=== PATIENT | male | born 1990 | race Caucasian/White ===

== ENCOUNTER → 2016-10-02 | Outpatient (CLI) | payer OTHER ==
[2016-10-02 16:44] LABS: BASO % 0.6 % (0.0-1.0); EOS # 0.1 K/mm3 (0.0-0.50); EOS % 2.1 % (0.0-3.0); LARGE UNSTAINED CELL # 0.2 K/mm3 (0.0-0.4); LARGE UNSTAINED CELL % 2.6 % (0.0-4.0); LYMPH # 2.1 K/mm3 (1.5-6.5); LYMPH % 28.8 % (24.0-44.0); MEAN CORPUSCULAR HEMOGLOBIN 31.2 pg (27.0-33.0); MEAN CORPUSCULAR HGB CONC 34.8 g/dl (32.0-36.5); MEAN CORPUSCULAR VOLUME 89.8 fl (80.0-96.0); MONO # 0.5 K/mm3 (0.0-0.8); MONO % 7.8 % (0.0-5.0); NEUTROPHILS # 3.9 K/mm3 (1.8-7.7); NEUTROPHILS % 58.2 % (36.0-66.0); PLATELET COUNT, AUTOMATED 164 k/mm3 (150-450); RED CELL DISTRIBUTION WIDTH 12.3 % (11.5-14.5); WHITE BLOOD COUNT 6.7 K/mm3 (4.0-10.0)
[2016-10-02 16:56] LABS: ALBUMIN/GLOBULIN RATIO 1.14 (1.00-1.93); ALKALINE PHOSPHATASE 84 U/L (45-117); ALT/SGPT 33 U/L (12-78); ANION GAP 5 MEQ/L (8-16); AST/SGOT 12 U/L (15-37); BILIRUBIN,TOTAL 0.5 MG/DL (0.2-1.0); BLOOD UREA NITROGEN 13 MG/DL (7-18); CALCIUM LEVEL 8.3 MG/DL (8.5-10.1); CARBON DIOXIDE LEVEL 32 MEQ/L (21-32); CHLORIDE LEVEL 103 MEQ/L (98-107); GLOMERULAR FILTRATION RATE > 60.0 (>60); GLUCOSE, FASTING 127 MG/DL (70-105); POTASSIUM SERUM 3.9 MEQ/L (3.5-5.1); SODIUM LEVEL 140 MEQ/L (136-145); TOTAL PROTEIN 7.5 GM/DL (6.4-8.2)
--- NOTE | 2016-10-03 19:56 | ECGEPIP ---
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
== END ==
LOC: M LAB 15:24
PROVIDERS: ATTEND Family Medicine
DX: F11.20 Opioid dependence, uncomplicated (principal)

== ENCOUNTER 2016-12-23 22:40 | Emergency (ER) | payer OTHER ==
[~2016-12-23] VITALS: Ht 180.3 cm; Wt 74.3 kg
[2016-12-23] MEDS ORDERED: METH10CO6 PO (22:50)
[2016-12-24] MEDS ORDERED: TOBR3OI OS (00:43)
[2016-12-24] MEDS ORDERED: AUGM875T28 PO (00:43)
[2016-12-24] MEDS ORDERED: AUGMENTIN 875 MG TAB PO ONE (00:45)
[2016-12-24 00:52] VITALS: BP 121/69
== END 2016-12-24 00:53 | disposition home or self-care (01) ==
LOC: M ED 22:40
DX: H01.004 Unspecified blepharitis left upper eyelid (principal); F19.10 Other psychoactive substance abuse, uncomplicated; F17.200 Nicotine dependence, unspecified, uncomplicated; Z79.891 Long term (current) use of opiate analgesic

== ENCOUNTER 2017-01-13 16:21 | Emergency (ER) | payer OTHER ==
[~2017-01-13] VITALS: Ht 182.9 cm; Wt 73.8 kg
[~2017-01-13 16:21] MED LIST: AUGM875T28 PO; METH10CO6 PO; TOBR3OI OS
--- NOTE | 2017-01-13 18:50 | REPUSA ---
Clinical statement: Pain. Findings: The right inguinal region was image. There is a right inguinal hernia demonstrated upon Natalie kristen maneuver, containing omental fat. No bowel is seen herniating at this site. There is no eviden ce of ascites. Impression: Right inguinal hernia without bowel involvement.
[2017-01-13] MEDS ORDERED: IBUP-1022 PO (19:23)
[2017-01-13 19:39] VITALS: BP 121/81
== END 2017-01-13 19:41 | disposition home or self-care (01) ==
LOC: M ED 16:21
DX: K40.90 Unilateral inguinal hernia, without obstruction or gangrene, not specified as recurrent (principal); F17.210 Nicotine dependence, cigarettes, uncomplicated; F19.20 Other psychoactive substance dependence, uncomplicated; Z79.899 Other long term (current) drug therapy

== ENCOUNTER 2017-01-15 09:15 | Emergency (ER) | payer OTHER ==
[~2017-01-15] VITALS: Ht 182.9 cm; Wt 73.6 kg
[~2017-01-15 09:15] MED LIST changes: +IBUP-1022 PO
[2017-01-15 12:10] VITALS: BP 133/69
--- NOTE | 2017-01-15 12:15 | REP ---
MAXILLOFACIAL CT WITHOUT CONTRAST: HISTORY: Injury. Minimal mucosal thickening is present in the right maxillary sinus. The remaining sinuses are clear. The osteomeatal units are patent. The middle and inferior nasal turbinates are partially paradoxical. There is nicolle bullosa of the middle nasal turbinates. There is minimal deviation of the nasal septum to the left. A small spur is present arising from the left side of the nasal septum. There is a small area of dehiscence of the medial wall of the left orbit. The cribriform plate, medial wall of the right orbit and optic canals are intact . The carotid canals form a segment of the posterolateral casillas of the sphenoid sinus. There is no fracture. IMPRESSION: Sinus mucosal thickening as described above. Signed by Jorge Colon MD 01/15/2017 12:33 P
== END 2017-01-15 12:11 | disposition home or self-care (01) ==
LOC: M ED 09:15
DX: S01.531A Puncture wound without foreign body of lip, initial encounter (principal); R68.84 Jaw pain; W22.8XXA Striking against or struck by other objects, initial encounter; Y92.009 Unspecified place in unspecified non-institutional (private) residence as the place of occurrence of the external cause; Y93.89 Activity, other specified; Y99.8 Other external cause status; F17.200 Nicotine dependence, unspecified, uncomplicated; Z79.899 Other long term (current) drug therapy

== ENCOUNTER 2017-01-17 17:23 | Emergency (ER) | payer OTHER ==
[~2017-01-17] VITALS: Ht 182.9 cm; Wt 72.7 kg
[2017-01-17 18:25] LABS: BASO % 0.6 % (0.0-1.0); EOS # 0.3 K/mm3 (0.0-0.50); EOS % 5.7 % (0.0-3.0); LARGE UNSTAINED CELL # 0.2 K/mm3 (0.0-0.4); LARGE UNSTAINED CELL % 3.8 % (0.0-4.0); LYMPH # 1.8 K/mm3 (1.5-6.5); LYMPH % 32.9 % (24.0-44.0); MEAN CORPUSCULAR HEMOGLOBIN 30.8 pg (27.0-33.0); MEAN CORPUSCULAR VOLUME 85.5 fl (80.0-96.0); MONO # 0.5 K/mm3 (0.0-0.8); MONO % 10.3 % (0.0-5.0); NEUTROPHILS # 2.2 K/mm3 (1.8-7.7); NEUTROPHILS % 46.8 % (36.0-66.0); PLATELET COUNT, AUTOMATED 164 k/mm3 (150-450); RED CELL DISTRIBUTION WIDTH 12.5 % (11.5-14.5); WHITE BLOOD COUNT 4.8 K/mm3 (4.0-10.0)
[2017-01-17 18:43] LABS: METHADONE URINE POSITIVE (NEGATIVE)
[2017-01-17 18:50] LABS: ALBUMIN 3.8 GM/DL (3.2-5.2); ALBUMIN/GLOBULIN RATIO 0.97 (1.00-1.93); ALKALINE PHOSPHATASE 91 U/L (45-117); ALT/SGPT 31 U/L (12-78); ANION GAP 7 MEQ/L (8-16); AST/SGOT 16 U/L (15-37); BILIRUBIN,DIRECT 0.2 MG/DL (0.0-0.2); BILIRUBIN,TOTAL 0.8 MG/DL (0.2-1.0); BLOOD UREA NITROGEN 13 MG/DL (7-18); CALCIUM LEVEL 8.4 MG/DL (8.5-10.1); CARBON DIOXIDE LEVEL 27 MEQ/L (21-32); CHLORIDE LEVEL 106 MEQ/L (98-107); CREATININE FOR GFR 0.85 MG/DL (0.70-1.30); GLOMERULAR FILTRATION RATE > 60.0 (>60); GLUCOSE, FASTING 69 MG/DL (70-105); POTASSIUM SERUM 3.7 MEQ/L (3.5-5.1); SODIUM LEVEL 140 MEQ/L (136-145); TOTAL PROTEIN 7.7 GM/DL (6.4-8.2)
[2017-01-17] MEDS ORDERED: NS 1,000 ML IV ONE (19:00)
[2017-01-17 20:30] VITALS: BP 134/71
--- NOTE | 2017-01-19 08:25 | ECGEPIP ---
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
== END 2017-01-17 21:02 | disposition home or self-care (01) ==
LOC: M ED 17:23
DX: T40.4X1A Poisoning by other synthetic narcotics, accidental (unintentional), initial encounter (principal); F41.9 Anxiety disorder, unspecified; X58.XXXA Exposure to other specified factors, initial encounter; Y92.89 Other specified places as the place of occurrence of the external cause; Z79.899 Other long term (current) drug therapy

== ENCOUNTER 2018-04-12 10:26 | Emergency (ER) | payer MEDICAID, SELFPAY, OTHER ==
[2018-04-12] MEDS: LORazepam 0.5 MG TAB PO (11:23)
== END 2018-04-12 12:44 | disposition home or self-care (01) ==
LOC: M ED 10:26
DX: R03.0 Elevated blood-pressure reading, without diagnosis of hypertension (principal); R25.1 Tremor, unspecified; M54.5 Low back pain; M79.604 Pain in right leg; F41.9 Anxiety disorder, unspecified; F17.210 Nicotine dependence, cigarettes, uncomplicated
CPT/HCPCS: 99283

== ENCOUNTER → 2018-05-06 | Outpatient (CLI) | payer MEDICAID | LOC: M OUTALCOH 08:57 | DX: Z13.9 Encounter for screening, unspecified (principal); F11.20 Opioid dependence, uncomplicated; F15.20 Other stimulant dependence, uncomplicated ==

== ENCOUNTER 2018-06-16 19:23 | Emergency (ER) | payer MEDICAID, OTHER ==
[~2018-06-16] VITALS: Ht 182.9 cm; Wt 72.7 kg
[~2018-06-16 19:23] MED LIST changes: +IBUP80TA PO; +PROP40TA62 PO
[2018-06-16] MEDS ORDERED: SUBO8MIS (19:37)
[2018-06-16] MEDS ORDERED: NS 1,000 ML IV ONE (20:45)
[2018-06-16 20:49] LABS: BASO # 0.1 10^3/uL (0.0-0.2); BASO % 0.3 % (0.0-1.0); EOS # 0.2 10^3/uL (0.0-0.50); EOS % 1.4 % (0.0-3.0); HEMATOCRIT 44.9 % (42.0-52.0); HEMOGLOBIN 15.5 g/dl (13.5-17.5); LYMPH # 1.9 10^3/uL (1.5-6.5); LYMPH % 10.5 % (24.0-44.0); MEAN CORPUSCULAR HEMOGLOBIN 29.1 pg (27.0-33.0); MEAN CORPUSCULAR HGB CONC 34.5 g/dl (32.0-36.5); MEAN CORPUSCULAR VOLUME 84.4 fl (80.0-96.0); MONO % 11.4 % (0.0-5.0); NEUTROPHILS # 13.4 10^3/uL (1.8-7.7); PLATELET COUNT, AUTOMATED 220 10^3/uL (150-450); RED BLOOD COUNT 5.32 10^6/uL (4.30-6.10); WHITE BLOOD COUNT 17.7 10^3/uL (4.0-10.0)
[2018-06-16] MEDS ORDERED: KETOROLAC 30 MG/ML VIAL (J1885) IV ONE (21:00)
[2018-06-16 21:01] LABS: ALBUMIN 3.7 GM/DL (3.2-5.2); ALT/SGPT 21 U/L (12-78); BILIRUBIN,DIRECT 0.3 MG/DL (0.0-0.2); BILIRUBIN,TOTAL 0.8 MG/DL (0.2-1.0); BLOOD UREA NITROGEN 17 MG/DL (7-18); C REACTIVE PROTEIN QUANTITATIV 5.63 MG/DL (0.00-0.30); CALCIUM LEVEL 8.5 MG/DL (8.5-10.1); CARBON DIOXIDE LEVEL 31 MEQ/L (21-32); CHLORIDE LEVEL 101 MEQ/L (98-107); CREATININE FOR GFR 1.07 MG/DL (0.70-1.30); GLOMERULAR FILTRATION RATE > 60.0 (>60); GLUCOSE, FASTING 101 MG/DL (70-100); SODIUM LEVEL 137 MEQ/L (136-145); TOTAL PROTEIN 8.2 GM/DL (6.4-8.2)
[2018-06-16 21:15] LABS: ERYTHROCYTE SEDIMENTATION RATE 21 mm/hr (0-15)
[2018-06-16] MEDS ORDERED: ISOVUE-370 76% 100ML VIAL (Q9967) As Ordered ONE (21:27)
--- NOTE | 2018-06-16 22:57 | REPVR ---
EXAM: CT Neck With Contrast EXAM DATE/TIME: 06/16/2018 10:18 PM CLINICAL HISTORY: 28 years old, male; Pain; Other: Tooth pain/ redness down left neck; Additional info: Tooth pain/swelling redness down left neck TECHNIQUE: Axial computed tomography images of the neck with intravenous contrast. All CT scans at this facility use at least one of these dose optimization techniques: automated exposure control; mA and/or kV adjustment per patient size (includes targeted exams where dose is matched to clinical indication); or iterative reconstruction. Coronal and sagittal reformatted images were created and reviewed. CONTRAST: 75 ml of ISOVUE 370 administered intravenously. COMPARISON: No relevant prior studies available. FINDINGS: Sinuses: Mucosal thickening of the inferior frontal sinus, ethmoid sinuses, sphenoid sinus and to a much lesser degree left maxillary sinus. Nasopharynx: Slight prominence of the adenoids which is upper normal for age. Oropharynx: Normal. No significant tonsillar enlargement. Larynx: The epiglottis is normal. Submandibular/Parotid glands: Normal. Glands are normal in size. Thyroid: Normal. No enlarged or calcified nodules. Lymph nodes: Borderline left cervical nodes. Lungs: Normal as visualized. Vasculature: No acute findings. Dental: No significant periodontal disease. Bones/joints: Depression of the left lamina papyracea. Soft tissues: Slight subcutaneous edema of the left submandibular neck. IMPRESSION: 1. Borderline left cervical nodes. 2. Depression of the left lamina papyracea consistent with old injury. 3. Ethmoid, sphenoid, inferior frontal and to lesser degree left maxillary sinus disease. 4. Upper normal size of the adenoids for age. 5. Slight subcutaneous edema of the left submandibular neck. 6. No significant periodontal disease. Electronically signed by: Jermaine Helm On 06/16/2018 22:56:32 PM
[2018-06-16] MEDS ORDERED: AMPICILLIN SOD/SULBACTAM SOD 3 GM in D5W MINI-BAG PLUS 100 ML IV ONE (23:15)
[2018-06-16] MEDS ORDERED: methylPREDNISolone INJ 125 MG/2 ML VIAL (J2930) IV ONE (23:15)
[2018-06-16] MEDS ORDERED: KETO10TAB PO (23:44)
[2018-06-16] MEDS ORDERED: PRED20TA PO (23:44)
[2018-06-16] MEDS ORDERED: AUGM875T28 PO (23:44)
[2018-06-17 00:23] VITALS: BP 121/71
== END 2018-06-17 00:22 | disposition home or self-care (01) ==
LOC: M ED 19:23
DX: J01.90 Acute sinusitis, unspecified (principal); L03.221 Cellulitis of neck; K01.1 Impacted teeth; F17.210 Nicotine dependence, cigarettes, uncomplicated; F15.10 Other stimulant abuse, uncomplicated; Z79.899 Other long term (current) drug therapy
CPT/HCPCS: 36415; 70491; 80048; 80076; 83605; 85025; 85652; 86140; 87040; 96361; 96365; 96375; 99284; J1885; J2930; Q9967

== ENCOUNTER 2019-04-28 11:19 | Emergency (ER) | payer OTHER ==
[~2019-04-28] VITALS: Ht 182.9 cm; Wt 77.3 kg
[~2019-04-28 11:19] MED LIST changes: +KETO10TAB PO; +PRED20TA PO; +SUBO8MIS
[2019-04-28 11:20] VITALS: BP 141/76
[2019-04-28] MEDS ORDERED: hydrOXYzine 50 MG TAB PO STA (13:03)
[2019-04-28] MEDS ORDERED: NS 1,000 ML IV ONE (13:15)
[2019-04-28 13:19] LABS: HEMATOCRIT 42.7 % (42.0-52.0); MEAN CORPUSCULAR HEMOGLOBIN 29.8 pg (27.0-33.0); MEAN CORPUSCULAR HGB CONC 35.1 g/dl (32.0-36.5); MEAN CORPUSCULAR VOLUME 84.9 fl (80.0-96.0); PLATELET COUNT, AUTOMATED 189 10^3/uL (150-450); RED BLOOD COUNT 5.03 10^6/uL (4.30-6.10); WHITE BLOOD COUNT 7.4 10^3/uL (4.0-10.0)
[2019-04-28 13:46] LABS: ACETAMINOPHEN LEVEL < 2.0 UG/ML (10.0-30.0); ALBUMIN 4.5 GM/DL (3.2-5.2); ALT/SGPT 165 U/L (12-78); BILIRUBIN,DIRECT 0.3 MG/DL (0.0-0.2); BILIRUBIN,TOTAL 0.9 MG/DL (0.2-1.0); BLOOD UREA NITROGEN 19 MG/DL (7-18); CALCIUM LEVEL 9.1 MG/DL (8.5-10.1); CARBON DIOXIDE LEVEL 28 MEQ/L (21-32); CHLORIDE LEVEL 105 MEQ/L (98-107); CPK CREATINE PHOSPHOKINASE 669 U/L (39-308); CREATININE FOR GFR 0.83 MG/DL (0.70-1.30); ETHYL ALCOHOL (ETHANOL) < 0.003 % (0.000-0.010); GLOMERULAR FILTRATION RATE > 60.0 (>60); GLUCOSE, FASTING 82 MG/DL (70-100); POTASSIUM SERUM 3.9 MEQ/L (3.5-5.1); SALICYLATE LEVEL < 1.7 MG/DL (5.0-30.0); SODIUM LEVEL 140 MEQ/L (136-145); THYROID STIMULATING HORMONE 0.321 uIU/ML (0.358-3.740); TOTAL PROTEIN 8.4 GM/DL (6.4-8.2)
== END 2019-04-28 14:00 | disposition left against medical advice (07) ==
LOC: M ED 11:19 → EEVIPCON 11:19 → M ED 14:00
DX: F19.10 Other psychoactive substance abuse, uncomplicated (principal); Z79.891 Long term (current) use of opiate analgesic
CPT/HCPCS: 80048; 80076; 82550; 84443; 85027; 99283; G0480

== ENCOUNTER 2019-10-02 14:27 | Emergency (ER) | payer OTHER ==
[~2019-10-02] VITALS: Ht 182.9 cm; Wt 75.7 kg
[2019-10-02 15:14] LABS: BASO # 0.1 10^3/uL (0.0-0.2); BASO % 0.6 % (0.0-1.0); EOS # 0.2 10^3/uL (0.0-0.5); EOS % 1.6 % (0.0-3.0); HEMATOCRIT 44.1 % (42.0-52.0); HEMOGLOBIN 14.6 g/dl (13.5-17.5); LYMPH # 1.9 10^3/uL (1.5-5.0); LYMPH % 18.9 % (24.0-44.0); MEAN CORPUSCULAR HEMOGLOBIN 29.6 pg (27.0-33.0); MEAN CORPUSCULAR HGB CONC 33.1 g/dl (32.0-36.5); MEAN CORPUSCULAR VOLUME 89.5 fl (80.0-96.0); MONO # 1.3 10^3/uL (0.0-0.8); MONO % 12.6 % (0.0-5.0); NEUTROPHILS # 6.6 10^3/uL (1.5-8.5); PLATELET COUNT, AUTOMATED 196 10^3/uL (150-450); RED BLOOD COUNT 4.93 10^6/uL (4.30-6.10); WHITE BLOOD COUNT 9.9 10^3/uL (4.0-10.0)
[2019-10-02 15:33] LABS: ERYTHROCYTE SEDIMENTATION RATE 19 mm/hr (0-15)
[2019-10-02 15:40] LABS: ALBUMIN 3.7 GM/DL (3.2-5.2); ALT/SGPT 147 U/L (12-78); BILIRUBIN,DIRECT 0.3 MG/DL (0.0-0.2); BILIRUBIN,TOTAL 0.7 MG/DL (0.2-1.0); BLOOD UREA NITROGEN 16 MG/DL (7-18); C REACTIVE PROTEIN QUANTITATIV 0.62 MG/DL (0.00-0.30); CALCIUM LEVEL 9.1 MG/DL (8.5-10.1); CARBON DIOXIDE LEVEL 34 MEQ/L (21-32); CHLORIDE LEVEL 99 MEQ/L (98-107); CREATININE FOR GFR 0.69 MG/DL (0.70-1.30); GLOMERULAR FILTRATION RATE > 60.0 (>60); GLUCOSE, FASTING 88 MG/DL (70-100); POTASSIUM SERUM 3.7 MEQ/L (3.5-5.1); SODIUM LEVEL 136 MEQ/L (136-145); TOTAL PROTEIN 8.5 GM/DL (6.4-8.2)
[2019-10-02] MEDS ORDERED: DALBAVANCIN 1,500 MG in D5W 250 ML IV ONE (16:30)
[2019-10-02 17:52] VITALS: BP 138/89
--- NOTE | 2019-10-03 07:39 | REP ---
DEEP VENOUS ULTRASONOGRAPHY LEFT THIGH, RULE OUT DVT: REASON: Pain and swelling. TECHNIQUE: Multiple ultrasonographic images of the deep venous structures of the left thigh were obtained from the common femoral vein to the popliteal vein along with Doppler interrogation and color flow Doppler images. FINDINGS: There is no abnormal echogenic material seen within any of the visualized deep venous structures that would suggest acute thrombosis. Coaptation is unremarkable throughout. Doppler interrogation shows an expected response to respiratory variability and augmentation. The color flow images show what appears to be a normal vascular pattern throughout. IMPRESSION: There is no ultrasonographic evidence of deep venous thrombosis involving any of the visualized deep venous structures of the left thigh, as described above. Electronically Signed by Paresh Doherty DO 10/03/2019 08:39 A
== END 2019-10-02 18:17 | disposition home or self-care (01) ==
LOC: M ED 14:27
DX: L03.116 Cellulitis of left lower limb (principal); Z79.891 Long term (current) use of opiate analgesic
CPT/HCPCS: 36415; 80048; 80076; 83605; 85025; 85652; 86140; 87040; 93971; 96365; 99284; J0875

== ENCOUNTER 2019-10-25 15:55 | Emergency (ER) | payer OTHER ==
[~2019-10-25] VITALS: Ht 182.9 cm; Wt 79.2 kg
[2019-10-25 15:55] VITALS: BP 122/78
[2019-10-25] MEDS ORDERED: SUBO8MIS (16:02)
[2019-10-25] MEDS ORDERED: PRED10TA2 (16:02)
[2019-10-25] MEDS ORDERED: CLIN300C5 (16:02)
[2019-10-25] MEDS ORDERED: KETO10TAB (16:02)
[2019-10-25] MEDS ORDERED: CLEO300C2 PO (16:49)
== END 2019-10-25 16:55 | disposition home or self-care (01) ==
LOC: M ED 15:55
DX: L03.116 Cellulitis of left lower limb (principal)

== ENCOUNTER 2020-10-03 02:00 | Emergency (ER) | payer OTHER ==
[~2020-10-03 02:00] MED LIST changes: +CLEO300C2 PO; +CLIN300C6; +KETO10TAB; +PRED10TA2
[2020-10-03] MEDS ORDERED: NS 1,000 ML IV ONE (02:10)
[2020-10-03 02:46] LABS: BASO # 0.1 10^3/uL (0.0-0.2); BASO % 0.5 % (0.0-1.0); EOS # 0.3 10^3/uL (0.0-0.5); EOS % 2.9 % (0.0-3.0); HEMATOCRIT 43.8 % (42.0-52.0); HEMOGLOBIN 14.9 g/dl (13.5-17.5); LYMPH # 1.9 10^3/uL (1.5-5.0); LYMPH % 19.9 % (24.0-44.0); MEAN CORPUSCULAR HEMOGLOBIN 29.9 pg (27.0-33.0); MONO # 1.1 10^3/uL (0.0-0.8); MONO % 12.1 % (2.0-8.0); NEUTROPHILS % 64.4 % (36.0-66.0); PLATELET COUNT, AUTOMATED 184 10^3/uL (150-450); RED BLOOD COUNT 4.98 10^6/uL (4.30-6.10); WHITE BLOOD COUNT 9.4 10^3/uL (4.0-10.0)
[2020-10-03 02:59] LABS: ABG BASE EXCESS 0.6 (-2.0-2.0); ABG HCO3 25.8 MEQ/L (22.0-26.0); ABG O2 SATURATION 97.8 % (95.0-99.0); ABG PARTIAL PRESSURE CO2 43.5 mmHg (35.0-45.0); ABG TOTAL CO2 27.1 MEQ/L (22.0-29.0); ABG pH (ARTERIAL) 7.391 UNITS (7.350-7.450)
[2020-10-03 03:41] LABS: ACETAMINOPHEN LEVEL < 2.0 UG/ML (10.0-30.0); ALBUMIN 3.6 GM/DL (3.2-5.2); ALT/SGPT 58 U/L (12-78); BILIRUBIN,DIRECT 0.2 MG/DL (0.0-0.2); BILIRUBIN,TOTAL 0.5 MG/DL (0.2-1.0); BLOOD UREA NITROGEN 18 MG/DL (7-18); CALCIUM LEVEL 8.5 MG/DL (8.5-10.1); CARBON DIOXIDE LEVEL 31 MEQ/L (21-32); CHLORIDE LEVEL 108 MEQ/L (98-107); CPK CREATINE PHOSPHOKINASE 531 U/L (39-308); CREATININE FOR GFR 1.04 MG/DL (0.70-1.30); ETHYL ALCOHOL (ETHANOL) < 0.003 % (0.000-0.010); GLOMERULAR FILTRATION RATE > 60.0 (>60); GLUCOSE, FASTING 103 MG/DL (70-100); SALICYLATE LEVEL < 1.7 MG/DL (5.0-30.0); SODIUM LEVEL 141 MEQ/L (136-145); THYROID STIMULATING HORMONE 0.553 uIU/ML (0.358-3.740); TOTAL PROTEIN 8.4 GM/DL (6.4-8.2)
[2020-10-03 08:30] VITALS: BP 137/87
--- NOTE | 2020-10-04 07:27 | ECGEPIP ---
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
== END 2020-10-03 09:08 | disposition home or self-care (01) ==
LOC: M ED 02:00
DX: T59 Toxic effect of other gases, fumes and vapors (principal); F19.10 Other psychoactive substance abuse, uncomplicated; Y92.9 Unspecified place or not applicable; Y93.9 Activity, unspecified; Y99.9 Unspecified external cause status

== ENCOUNTER 2021-07-27 04:57 | Emergency (ER) | payer OTHER ==
[~2021-07-27 04:57] MED LIST changes: +CLIN-250; -CLIN300C6
[2021-07-27] MEDS ORDERED: LORazepam 2 MG/ML VIAL IV STA (05:07)
[2021-07-27] MEDS ORDERED: ONDANSETRON 4MG/2ML VIAL IV ONE (05:10)
[2021-07-27] MEDS ORDERED: NS 1,000 ML IV ONE ×2 (05:10→06:30)
[2021-07-27 05:29] LABS: BASO # 0.1 10^3/uL (0.0-0.2); BASO % 0.9 % (0.0-1.0); EOS # 0.2 10^3/uL (0.0-0.5); EOS % 3.2 % (0.0-3.0); HEMOGLOBIN 16.8 g/dl (13.5-17.5); LYMPH # 2.6 10^3/uL (1.5-5.0); LYMPH % 34.2 % (24.0-44.0); MEAN CORPUSCULAR HEMOGLOBIN 30.3 pg (27.0-33.0); MEAN CORPUSCULAR VOLUME 86.6 fl (80.0-96.0); MONO # 1.2 10^3/uL (0.0-0.8); MONO % 15.9 % (2.0-8.0); NEUTROPHILS # 3.5 10^3/uL (1.5-8.5); NEUTROPHILS % 45.4 % (36.0-66.0); PLATELET COUNT, AUTOMATED 176 10^3/uL (150-450); RED BLOOD COUNT 5.54 10^6/uL (4.30-6.10); WHITE BLOOD COUNT 7.6 10^3/uL (4.0-10.0)
[2021-07-27 05:57] LABS: AMPHETAMINES LEVEL URINE POSITIVE (NEGATIVE); BARBITURATES URINE NEGATIVE (NEGATIVE); BENZODIAZEPINES URINE NEGATIVE (NEGATIVE); CANNABINOIDS URINE NEGATIVE (NEGATIVE); COCAINE METABOLITE URINE NEGATIVE (NEGATIVE); METHADONE URINE NEGATIVE (NEGATIVE); OPIATES URINE POSITIVE (NEGATIVE); PHENCYCLIDINE URINE NEGATIVE (NEGATIVE)
[2021-07-27 06:09] LABS: ACETAMINOPHEN LEVEL < 2.0 UG/ML (10.0-30.0); ALBUMIN 4.2 GM/DL (3.2-5.2); ALT/SGPT 332 U/L (12-78); BILIRUBIN,DIRECT 0.3 MG/DL (0.0-0.2); BILIRUBIN,TOTAL 1.1 MG/DL (0.2-1.0); BLOOD UREA NITROGEN 16 MG/DL (7-18); CALCIUM LEVEL 9.1 MG/DL (8.5-10.1); CARBON DIOXIDE LEVEL 27 MEQ/L (21-32); CHLORIDE LEVEL 108 MEQ/L (98-107); ETHYL ALCOHOL (ETHANOL) < 0.003 % (0.000-0.010); GLOMERULAR FILTRATION RATE > 60.0 (>60); GLUCOSE, FASTING 70 MG/DL (70-100); POTASSIUM SERUM 4.8 MEQ/L (3.5-5.1); SALICYLATE LEVEL < 1.7 MG/DL (5.0-30.0); SODIUM LEVEL 140 MEQ/L (136-145); THYROID STIMULATING HORMONE 0.368 uIU/ML (0.358-3.740); TOTAL PROTEIN 8.7 GM/DL (6.4-8.2)
[2021-07-27 10:30] VITALS: BP 135/83
== END 2021-07-27 13:00 | disposition home or self-care (01) ==
LOC: M ED 04:57
DX: T40.1X1A Poisoning by heroin, accidental (unintentional), initial encounter (principal); F11.20 Opioid dependence, uncomplicated; I45.19 Other right bundle-branch block
CPT/HCPCS: 36415; 80048; 80076; 80143; 80307; 82077; 82550; 84443; 85025; 93005; 93041; 94760; 96361; 96374; 96375; 99285; J2060; J2405

== ENCOUNTER → 2021-10-30 | Outpatient (REF) | payer OTHER ==
[2021-10-30 19:40] LABS: GC DNA AMPLIFICATION NEGATIVE (NEGATIVE)
== END ==
LOC: M LAB REF 15:46
PROVIDERS: ATTEND Family Medicine
DX: F15.20 Other stimulant dependence, uncomplicated (principal)

== ENCOUNTER 2022-06-05 22:41 | Emergency (ER) | payer OTHER ==
[~2022-06-05] VITALS: Ht 182.9 cm; Wt 84.3 kg
[~2022-06-05 22:41] MED LIST changes: +TOBR3.5O2 OS; -TOBR3OI OS
[2022-06-06 07:17] VITALS: BP 141/71
== END 2022-06-06 07:24 | disposition home or self-care (01) ==
LOC: M ED 22:41
DX: K40.90 Unilateral inguinal hernia, without obstruction or gangrene, not specified as recurrent (principal); F11.10 Opioid abuse, uncomplicated

== ENCOUNTER → 2022-06-25 | Outpatient (REF) | payer OTHER ==
[2022-06-25 13:59] LABS: HEMATOCRIT 42.2 % (42.0-52.0); HEMOGLOBIN 14.4 g/dl (13.5-17.5); MEAN CORPUSCULAR HEMOGLOBIN 30.4 pg (27.0-33.0); MEAN CORPUSCULAR HGB CONC 34.1 g/dl (32.0-36.5); MEAN CORPUSCULAR VOLUME 89.2 fl (80.0-96.0); PLATELET COUNT, AUTOMATED 151 10^3/uL (150-450); RED BLOOD COUNT 4.73 10^6/uL (4.30-6.10); WHITE BLOOD COUNT 5.1 10^3/uL (4.0-10.0)
[2022-06-25 14:27] LABS: ALBUMIN 3.7 G/DL (3.2-5.2); ALKALINE PHOSPHATASE 93 U/L (46-116); ALT/SGPT 322 U/L (7.0-40); AST/SGOT 195 U/L (<34); BILIRUBIN,TOTAL 0.7 MG/DL (0.3-1.2); BLOOD UREA NITROGEN 22 MG/DL (9-23); CALCIUM LEVEL 8.8 MG/DL (8.5-10.1); CARBON DIOXIDE LEVEL 30 MMOL/L (20-31); CHLORIDE LEVEL 102 MMOL/L (98-107); CREATININE FOR GFR 0.69 MG/DL (0.70-1.30); GLOMERULAR FILTRATION RATE > 60.0 (>60); GLUCOSE, FASTING 68 MG/DL (60-100); POTASSIUM SERUM 4.3 MMOL/L (3.5-5.1); SODIUM LEVEL 138 MMOL/L (136-145); TOTAL PROTEIN 7.7 G/DL (5.7-8.2)
[2022-06-25 15:36] LABS: GC DNA AMPLIFICATION NEGATIVE (NEGATIVE)
[2022-06-25 16:15] LABS: HEPATITIS B SURFACE ANTIGEN NEGATIVE (NEGATIVE); HIV 1&2 SCREEN CENTAUR NEGATIVE (NEGATIVE)
[2022-06-25 17:47] LABS: HEPATITIS C VIRUS ABY INDEX > 11.0 INDEX (<0.8)
== END ==
LOC: M LAB REF 12:33
PROVIDERS: ATTEND Family Medicine
DX: F11.20 Opioid dependence, uncomplicated (principal)

== ENCOUNTER 2023-08-31 20:29 | Emergency (ER) | payer OTHER ==
[~2023-08-31] VITALS: Ht 182.9 cm; Wt 81.8 kg
[2023-08-31 20:49] VITALS: BP 146/95; TEMP 99; O2SAT 98
[2023-08-31] MEDS: DERMABOND TOPICAL SKIN ADHESIVE TOP ONE (21:45)
[2023-08-31 22:17] LABS: BASO # 0.1 10^3/uL (0.0-0.2); BASO % 0.7 % (0.0-1.0); EOS # 0.2 10^3/uL (0.0-0.5); EOS % 2.7 % (0.0-3.0); HEMOGLOBIN 14.3 g/dl (13.5-17.5); LYMPH # 2.3 10^3/uL (1.5-5.0); LYMPH % 29.7 % (24.0-44.0); MEAN CORPUSCULAR HEMOGLOBIN 30.3 pg (27.0-33.0); MEAN CORPUSCULAR HGB CONC 35.8 g/dl (32.0-36.5); MEAN CORPUSCULAR VOLUME 84.7 fl (80.0-96.0); MONO # 0.9 10^3/uL (0.0-0.8); MONO % 11.9 % (2.0-8.0); NEUTROPHILS # 4.2 10^3/uL (1.5-8.5); NEUTROPHILS % 54.7 % (36.0-66.0); PLATELET COUNT, AUTOMATED 166 10^3/uL (150-450); RED BLOOD COUNT 4.72 10^6/uL (4.30-6.10); WHITE BLOOD COUNT 7.6 10^3/uL (4.0-10.0)
[2023-08-31 22:38] LABS: CANNABINOIDS URINE NEGATIVE (NEGATIVE); PHENCYCLIDINE URINE NEGATIVE (NEGATIVE)
[2023-08-31 22:39] LABS: BARBITURATES URINE NEGATIVE (NEGATIVE); BENZODIAZEPINES URINE NEGATIVE (NEGATIVE); COCAINE METABOLITE URINE NEGATIVE (NEGATIVE); METHADONE URINE NEGATIVE (NEGATIVE); OPIATES URINE NEGATIVE (NEGATIVE)
[2023-08-31 22:43] LABS: AMPHETAMINES LEVEL URINE POSITIVE (NEGATIVE); ETHYL ALCOHOL (ETHANOL) < 0.003 % (0.000-0.010)
[2023-08-31 22:44] LABS: ALBUMIN 4.2 G/DL (3.2-5.2); ALKALINE PHOSPHATASE 75 U/L (46-116); ALT/SGPT 66 U/L (7.0-40); AST/SGOT 42 U/L (<34); BILIRUBIN,DIRECT 0.5 MG/DL (<0.4); BILIRUBIN,TOTAL 1.1 MG/DL (0.3-1.2); BLOOD UREA NITROGEN 15 MG/DL (9-23); CALCIUM LEVEL 9.1 MG/DL (8.5-10.1); CARBON DIOXIDE LEVEL 29 MMOL/L (20-31); CHLORIDE LEVEL 102 MMOL/L (98-107); CPK CREATINE PHOSPHOKINASE 296 U/L (46-171); CREATININE FOR GFR 0.76 MG/DL (0.70-1.30); GLOMERULAR FILTRATION RATE > 60.0 (>60); GLUCOSE, FASTING 103 MG/DL (60-100); SALICYLATE LEVEL < 3.0 MG/DL (<30); SODIUM LEVEL 136 MMOL/L (136-145)
== END 2023-08-31 22:28 | disposition left against medical advice (07) ==
LOC: M ED 20:29
DX: F19.10 Other psychoactive substance abuse, uncomplicated (principal); F32.A Depression, unspecified; B19.20 Unspecified viral hepatitis C without hepatic coma; K40.90 Unilateral inguinal hernia, without obstruction or gangrene, not specified as recurrent; Z53.9 Procedure and treatment not carried out, unspecified reason

== ENCOUNTER 2023-09-12 06:24 | Inpatient (IN) | payer OTHER ==
[~2023-09-12] VITALS: Ht 182.9 cm; Wt 76.3 kg
[2023-09-12 07:23] LABS: BARBITURATES URINE NEGATIVE (NEGATIVE); BENZODIAZEPINES URINE NEGATIVE (NEGATIVE); CANNABINOIDS URINE NEGATIVE (NEGATIVE); COCAINE METABOLITE URINE NEGATIVE (NEGATIVE); METHADONE URINE NEGATIVE (NEGATIVE); PHENCYCLIDINE URINE NEGATIVE (NEGATIVE)
[2023-09-12 07:25] LABS: AMPHETAMINES LEVEL URINE POSITIVE (NEGATIVE); OPIATES URINE POSITIVE (NEGATIVE)
[2023-09-12] MEDS ORDERED: VANCOMYCIN HCL 1,500 MG in NS 250 ML IV ONE (07:25)
[2023-09-12] MEDS: ACETAMINOPHEN 500 MG TAB PO ONE (07:34)
[2023-09-12] MEDS: VANCOMYCIN HCL 750 MG, VIAL MATE ADAPTER 1 EACH in D5W 250 ML IV ONE ×2 (07:40→09:00)
[2023-09-12 08:09] LABS: BASO # 0.1 10^3/uL (0.0-0.2); BASO % 0.4 % (0.0-1.0); EOS % 0.1 % (0.0-3.0); HEMATOCRIT 41.4 % (42.0-52.0); HEMOGLOBIN 14.5 g/dl (13.5-17.5); LYMPH # 1.7 10^3/uL (1.5-5.0); MEAN CORPUSCULAR HEMOGLOBIN 30.2 pg (27.0-33.0); MEAN CORPUSCULAR VOLUME 86.3 fl (80.0-96.0); MONO # 1.5 10^3/uL (0.0-0.8); MONO % 9.4 % (2.0-8.0); NEUTROPHILS # 12.2 10^3/uL (1.5-8.5); NEUTROPHILS % 78.7 % (36.0-66.0); PLATELET COUNT, AUTOMATED 150 10^3/uL (150-450); WHITE BLOOD COUNT 15.6 10^3/uL (4.0-10.0)
[2023-09-12 08:25] LABS: BLOOD UREA NITROGEN 12 MG/DL (9-23); CALCIUM LEVEL 8.9 MG/DL (8.5-10.1); CARBON DIOXIDE LEVEL 27 MMOL/L (20-31); CHLORIDE LEVEL 100 MMOL/L (98-107); CREATININE FOR GFR 0.62 MG/DL (0.70-1.30); GLOMERULAR FILTRATION RATE > 60.0 (>60); GLUCOSE, FASTING 101 MG/DL (60-100); POTASSIUM SERUM 3.8 MMOL/L (3.5-5.1); SODIUM LEVEL 134 MMOL/L (136-145)
[2023-09-12 08:33] LABS: ERYTHROCYTE SEDIMENTATION RATE 32 mm/hr (0-15)
[2023-09-12] MEDS ORDERED: BUPR1SUB5 SL (08:42)
[2023-09-12] MEDS ORDERED: HOME MED LIST COMPLETE! XX SCH (08:45)
[2023-09-12] MEDS ORDERED: ISOVUE-370 76% 100ML VIAL As Ordered ONE (08:53)
[2023-09-12] MEDS ORDERED: ACETAMINOPHEN TAB 650MG DOSE (2X325MG) PO PRN (11:30)
[2023-09-12] MEDS: cefTRIAXone SOD 2 GM in D5W MINI-BAG PLUS 50 ML IV SCH (11:53)
[2023-09-12] MEDS: BUPRENORPHINE/NALOXONE 8-2MG SUBLINGUAL TABLET(SUBOXONE) SL SCH (12:06)
[2023-09-12] MEDS: KETOROLAC 30 MG/ML 1ML VIAL IV ONE (12:39)
[2023-09-12] MEDS: METOCLOPRAMIDE INJ 10MG/2ML VIAL IV ONE (12:39)
[2023-09-12 13:20] VITALS: BP 128/78; TEMP 98.1; O2SAT 99
[2023-09-12] MEDS: VANCOMYCIN HCL 1,000 MG, VIAL MATE ADAPTER 1 EACH in D5W 250 ML IV SCH (14:02)
[2023-09-12] MEDS: KETOROLAC 30 MG/ML 1ML VIAL IV PRN (16:55)
[2023-09-12] MEDS ORDERED: CEFD1CAP9 PO (17:02)
[2023-09-12] MEDS ORDERED: DOXY-444 PO (17:02)
[2023-09-12] MEDS ORDERED: DOCUSATE SODIUM 100MG CAPSULE PO SCH (21:00)
[2023-09-13] MEDS ORDERED: ENOXAPARIN 40MG/0.4ML SYRINGE (J1650 PER 10MG) SC SCH (09:00)
== END 2023-09-12 17:28 | disposition left against medical advice (07) | DRG 720 ==
LOC: EDBD 06:24 → M ED 06:24 → M ED INP 11:28 → M MSPAV 13:19
PROVIDERS: ADMIT Internal Medicine Nephrology; ATTEND Internal Medicine Nephrology
DX: A41.9 Sepsis, unspecified organism (principal); L03.114 Cellulitis of left upper limb; R82.998 Other abnormal findings in urine; F19.90 Other psychoactive substance use, unspecified, uncomplicated; Z79.899 Other long term (current) drug therapy; Z11.52 Encounter for screening for COVID-19; Z79.891 Long term (current) use of opiate analgesic

== ENCOUNTER 2023-12-26 19:01 | Inpatient (IN) | payer MEDICAID, OTHER ==
[~2023-12-26] VITALS: Ht 182.9 cm; Wt 79.5 kg
[~2023-12-26 19:01] MED LIST changes: +BUPR1SUB5 SL; +CEFD1CAP9 PO; +DOXY-440 PO
[2023-12-26] MEDS ORDERED: NS 1,000 ML IV ONE (19:40)
[2023-12-26 20:50] LABS: BASO # 0.1 10^3/uL (0.0-0.2); BASO % 0.6 % (0.0-1.0); EOS # 0.2 10^3/uL (0.0-0.5); EOS % 2.2 % (0.0-3.0); HEMOGLOBIN 14.7 g/dl (13.5-17.5); LYMPH # 1.9 10^3/uL (1.5-5.0); LYMPH % 23.4 % (24.0-44.0); MEAN CORPUSCULAR HEMOGLOBIN 29.6 pg (27.0-33.0); MEAN CORPUSCULAR VOLUME 84.7 fl (80.0-96.0); MONO # 0.8 10^3/uL (0.0-0.8); MONO % 9.4 % (2.0-8.0); NEUTROPHILS # 5.3 10^3/uL (1.5-8.5); NEUTROPHILS % 64.2 % (36.0-66.0); RED BLOOD COUNT 4.96 10^6/uL (4.30-6.10); WHITE BLOOD COUNT 8.2 10^3/uL (4.0-10.0)
[2023-12-26 21:18] LABS: BLOOD UREA NITROGEN 12 MG/DL (9-23); CALCIUM LEVEL 8.7 MG/DL (8.5-10.1); CARBON DIOXIDE LEVEL 28 MMOL/L (20-31); CHLORIDE LEVEL 103 MMOL/L (98-107); CREATININE FOR GFR 0.69 MG/DL (0.70-1.30); GLOMERULAR FILTRATION RATE > 60.0 (>60); GLUCOSE, FASTING 138 MG/DL (60-100); POTASSIUM SERUM 4.5 MMOL/L (3.5-5.1); SODIUM LEVEL 138 MMOL/L (136-145)
[2023-12-26 22:11] LABS: ETHYL ALCOHOL (ETHANOL) < 0.003 % (0.000-0.010)
[2023-12-26 22:12] LABS: SALICYLATE LEVEL < 3.0 MG/DL (<30)
[2023-12-26 22:18] LABS: ALBUMIN 3.8 G/DL (3.2-5.2); ALKALINE PHOSPHATASE 92 U/L (46-116); ALT/SGPT 130 U/L (7.0-40); AST/SGOT 125 U/L (<34); BILIRUBIN,DIRECT 0.4 MG/DL (<0.4); BILIRUBIN,TOTAL 1.3 MG/DL (0.3-1.2); THYROID STIMULATING HORMONE 0.372 uIU/ML (0.55-4.78); TOTAL PROTEIN 7.9 G/DL (5.7-8.2)
[2023-12-27] MEDS ORDERED: HOME MED LIST COMPLETE! XX SCH (02:20)
[2023-12-27 02:43] LABS: BARBITURATES URINE NEGATIVE (NEGATIVE); BENZODIAZEPINES URINE NEGATIVE (NEGATIVE); CANNABINOIDS URINE NEGATIVE (NEGATIVE); COCAINE METABOLITE URINE NEGATIVE (NEGATIVE); METHADONE URINE NEGATIVE (NEGATIVE); PHENCYCLIDINE URINE NEGATIVE (NEGATIVE)
[2023-12-27 02:55] LABS: AMPHETAMINES LEVEL URINE POSITIVE (NEGATIVE); OPIATES URINE POSITIVE (NEGATIVE)
[2023-12-27] MEDS: ONDANSETRON 4MG ORAL DISINTEGRATING TAB PO ONE (15:02)
[2023-12-27] MEDS: cloNIDine 0.2 MG TAB PO ONE (15:03)
[2023-12-28] MEDS: cloNIDine 0.2 MG TAB PO ONE ×2 (07:00→08:10)
[2023-12-28] MEDS: ONDANSETRON 4MG ORAL DISINTEGRATING TAB PO ONE (07:15)
[2023-12-28] MEDS: ONDANSETRON 4MG TAB PO ONE (13:48)
[2023-12-28] MEDS: LORazepam 2 MG TAB PO ONE (13:49)
[2023-12-28] MEDS: cloNIDine 0.1MG TABLET PO SCH (20:57)
[2023-12-29] MEDS: LORazepam 2 MG TAB PO ONE (01:42)
[2023-12-29] MEDS ORDERED: MAALOX 30 ML SUSP *UDC PO PRN (15:40)
[2023-12-29] MEDS ORDERED: IBUPROFEN 400MG TAB PO PRN (15:40)
[2023-12-29] MEDS ORDERED: traZODone 50 MG TAB PO PRN (15:40)
[2023-12-29] MEDS ORDERED: MOM 30ML SUSPENSION UDC PO PRN (15:40)
[2023-12-29] MEDS ORDERED: ACETAMINOPHEN TAB 650MG DOSE (2X325MG) PO PRN (15:40)
[2023-12-29 17:45] VITALS: BP 108/70; TEMP 97.1; O2SAT 96
[2023-12-29 20:30] VITALS: BP 141/92; TEMP 97.4; O2SAT 99
[2023-12-29 21:26] VITALS: BP 143/98
[2023-12-29] MEDS: diphenhydrAMINE 25MG CAP PO PRN (21:26)
[2023-12-29] MEDS: LORazepam 1 MG TAB PO PRN (21:27)
[2023-12-30 06:04] VITALS: BP 147/95; TEMP 97.7; O2SAT 99
[2023-12-30] MEDS: METHADONE 10MG TAB PO ONE (12:57)
== END 2023-12-30 16:00 | disposition home or self-care (01) | DRG 773 ==
LOC: EDBD 19:01 → M ED 19:01 → M ED INP 12-29 15:38 → M PSY 12-29 16:21
PROVIDERS: ADMIT Psychiatry & Neurology Child & Adolescent Psychiatry; ATTEND Psychiatry & Neurology Child & Adolescent Psychiatry
DX: F11.288 Opioid dependence with other opioid-induced disorder (principal); Z81.3 Family history of other psychoactive substance abuse and dependence; Z91.51 Personal history of suicidal behavior; R45.851 Suicidal ideations; F15.20 Other stimulant dependence, uncomplicated; Z65.3 Problems related to other legal circumstances